=== PATIENT | female | born 1970 | race Caucasian/White ===

== ENCOUNTER → 2021-06-20 | Outpatient (CLI) | payer BC ==
[~2021-06-20] MED LIST: CATHETER FLUSH 10 ML SYR IV PRN; HOLD METFORMIN - RECEIVED CONTRAST 20 ML VIAL IV SCH; IOHEXOL 350 MG/ML 100 ML (OMNIPAQUE 350) VIAL IV ONE; NS 100 ML (IVPB) BAG IV ONE
--- NOTE | 2021-06-20 14:28 | Diagnostic Imaging Report ---
PROCEDURE: CT neck soft tissue with contrast. TECHNIQUE: Multiple contiguous axial images were obtained through the neck after the administration of contrast. Auto Exposure Controls were utilized during the CT exam to meet ALARA standards for radiation dose reduction. INDICATION: Head and neck swelling. FINDINGS: Visualized portions of the brain are unremarkable. The visualized paranasal sinuses as well as mastoid air cells are clear. Globes are intact. There is no evidence of intraorbital inflammation. There is edema and inflammation in the subcutaneous tissue in the left premaxillary region extending toward the cheek; however, there is no evidence of organized fluid collection to indicate abscess or significant hematoma. Parotid and submandibular salivary glands are unremarkable in appearance. There is no evidence of pathologically enlarged adenopathy. Great vessels in the neck are patent. There is no evidence of thyroid gland lesion. Images through the upper thorax reveal an approximately 0.3 cm subpleural nodule in the lateral aspect of the left upper lobe and an approximately 0.5 cm subpleural nodule in the posterior subpleural aspect of the right upper lobe. No cervical spinal lesion is identified. There has been apparent extraction of several posterior left maxillary teeth. IMPRESSION: Findings are compatible with cellulitis in the left face without evidence of drainable abscess. Otherwise, no acute abnormality is identified. Dictated by: Dictated on workstation # [id number]
== END ==
LOC: RAD 13:40
PROVIDERS: ATTEND Physician Assistant
DX: L03.211 Cellulitis of face (principal)
CPT/HCPCS: 70491

== ENCOUNTER → 2023-01-14 | Outpatient (CLI) | payer BC, OTHER ==
[2023-01-14 12:15] LABS: BASOPHILS # (AUTO) 0.1 10^3/uL (0.0-0.1); BASOPHILS % (AUTO) 1 % (0-10); EOSINOPHILS # (AUTO) 0.3 10^3/uL (0.0-0.3); EOSINOPHILS % (AUTO) 4 % (0-10); HEMATOCRIT 39 % (35-52); HEMOGLOBIN 13.2 g/dL (11.5-16.0); LYMPHOCYTES % (AUTO) 28 % (12-44); MEAN CORPUSCULAR HEMOGLOBIN 30 pg (25-34); MEAN CORPUSCULAR HGB CONC 34 g/dL (32-36); MEAN CORPUSCULAR VOLUME 88 fL (80-99); MEAN PLATELET VOLUME 11.1 fL (9.0-12.2); MONOCYTES # (AUTO) 0.4 10^3/uL (0.0-1.0); MONOCYTES % (AUTO) 6 % (0-12); NEUTROPHILS # (AUTO) 4.5 10^3/uL (1.8-7.8); NEUTROPHILS % (AUTO) 62 % (42-75); PLATELET COUNT 229 10^3/uL (130-400); WHITE BLOOD COUNT 7.2 10^3/uL (4.3-11.0)
[2023-01-14 12:32] LABS: ALBUMIN 4.6 GM/DL (3.2-4.5); CHLORIDE 105 MMOL/L (98-107); POTASSIUM 4.2 MMOL/L (3.6-5.0); SODIUM 139 MMOL/L (135-145)
[2023-01-14 12:33] LABS: CALCIUM 9.8 MG/DL (8.5-10.1)
[2023-01-14 12:34] LABS: TRIGLYCERIDES 213 MG/DL (<150); VLDL CHOLESTEROL 43 MG/DL (5-40)
[2023-01-14 12:35] LABS: GLUCOSE 93 MG/DL (70-105); TOTAL PROTEIN 7.9 GM/DL (6.4-8.2)
[2023-01-14 12:36] LABS: CARBON DIOXIDE 22 MMOL/L (21-32)
[2023-01-14 12:37] LABS: BILIRUBIN,TOTAL 0.6 MG/DL (0.1-1.0)
[2023-01-14 12:38] LABS: ALKALINE PHOSPHATASE 64 U/L (40-136); CREATININE SERUM 0.85 MG/DL (0.60-1.30); GFR ESTIMATED 82
[2023-01-14 12:39] LABS: CHOLESTEROL 274 MG/DL (< 200)
[2023-01-14 12:40] LABS: BUN/CREATININE RATIO 15
[2023-01-14 12:41] LABS: ALANINE AMINOTRANSFERASE 19 U/L (0-55); HDL CHOLESTEROL 38 MG/DL (40-60)
[2023-01-14 13:03] LABS: FREE T4 (FREE THYROXINE) 0.79 NG/DL (0.70-1.48)
== END ==
LOC: LAB 11:50
PROVIDERS: ATTEND Family Medicine
DX: Z00.00 Encounter for general adult medical examination without abnormal findings (principal); N95.1 Menopausal and female climacteric states
CPT/HCPCS: 36415; 80053; 80061; 82670; 83001; 83002; 84439; 84443; 85025

== ENCOUNTER → 2023-02-05 | Outpatient (CLI) | payer BC, OTHER ==
--- NOTE | 2023-02-05 16:36 | Diagnostic Imaging Report ---
INDICATION: Routine screening. COMPARISON: No prior studies are available for comparison. This is a baseline study. TECHNIQUE: 2D and 3D bilateral screening mammography was performed with CAD. FINDINGS: Both breasts are heterogeneously dense, limiting the sensitivity of mammography. There are some benign-appearing calcifications on the left. No mass or malignant-appearing microcalcifications are seen. The axillae are unremarkable. IMPRESSION: No mammographic features suspicious for malignancy are identified. ACR BI-RADS Category 2: Benign findings. Result letter will be mailed to the patient. Note: At least 10% of breast cancer is not imaged by mammography. Dictated by: Dictated on workstation # [id number]
== END ==
LOC: RAD 15:19
PROVIDERS: ATTEND Family Medicine
DX: Z12.31 Encounter for screening mammogram for malignant neoplasm of breast (principal)
CPT/HCPCS: 77063; 77067